=== PATIENT | female | born 1955 | race Caucasian/White ===

== ENCOUNTER 2022-10-25 13:40 | Outpatient (CLI) | payer OTHER, SELFPAY ==
--- NOTE | ~2022-10-25 | MMUS_ITS ---
EXAMINATION: MM diagnostic marialuisa BI w doni, US breast BI complete HISTORY: Bilateral breast lumps TECHNIQUE: Bilateral ML, MLO and CC and additional left spot 3-D tomosynthesis images were performed and synthetic 2-D images were generated. CAD analysis was submitted and interpreted. High resolution bilateral complete breast ultrasound including all 4 quadrants and subareolar areas was performed. COMPARISON: 11/15/2018 bilateral screening mammogram BREAST PARENCHYMAL COMPOSITION: There are scattered areas of fibroglandular density. FINDINGS: MAMMOGRAPHIC FINDINGS: Diminished size and partial calcification of previous up to 2.5 cm mass in the inner aspect of the mi d inner right breast since 11/15/2018, currently measuring only approximately 7.9 mm maximal dimension . There are 2 approximately 3-4 mm low tomographic opacities in the outer left breast on craniocaudal v iew (craniocaudal Tomosynthesis image ). No suspicious mammographic mass is noted in the lower inner left breast skin marker was placed for br east lump complaint. No suspicious mass or architectural distortion is noted in the outer posterior mid right breast where a skin marker was placed for breast lump. There is only probably fatty tissue in this area. No other significant mammographic finding including mass or architectural distortion, malignant calci fication, skin thickening or retraction of either breast is noted. ULTRASOUND: Right breast: 12:00 2 cm from nipple: Approximately 8 mm calcification with posterior shadowing corresponding to in terval substantially diminished calcified benign mammographic mass of central right breast. Left breast: 3:00 2 cm from nipple: Parallel circumscribed 3.2 x 5 mm virtually sonolucent lesion without internal vascularity, with through transmission, probably benign 7:00 2 cm from nipple: 5.4 x 4.7 x 5.3 mm sonolucency with through transmission posterior enhancement , no internal vascularity, consistent with simple cyst 6:00 4 cm from nipple at area of concern: No significant sonographic steen [address] is surface i s in SVC There is an old abnormality is noted IMPRESSION: 1.. Probably benign findings 2. Six-month diagnostic left mammogram and left breast ultrasound follow-up are recommended BI-RADS category 3, probably benign findings. Reviewed, dictated and finalized at location A. [facility]OSPHOR[facility] PROCESSING IMPRESSION: 1.. Probably benign findings 2. Six-month diagnostic left mammogram and left breast ultrasound follow-up are recommended BI-RADS category 3, probably benign findings.
== END 2022-10-25 13:41 | disposition home or self-care (01) ==
LOC: ANHIMG 13:43
DX: R92.8 Other abnormal and inconclusive findings on diagnostic imaging of breast (principal)
CPT/HCPCS: 76641; 77062; 77066; G0279